=== PATIENT | male | born 1965 | race Caucasian/White ===

== ENCOUNTER 2018-06-02 16:59 | Emergency (ER) | payer OTHER, BC ==
[~2018-06-02] VITALS: Ht 182.9 cm; Wt 90.7 kg
[~2018-06-02 16:59] MED LIST: CEPH500 PO; FAMO20 PO; LISI5; OXYACE5T PO; SUCR1 PO
[2018-06-02] MEDS ORDERED: VARE1 PO (17:20)
== END 2018-06-02 17:30 | disposition home or self-care (01) ==
LOC: ER 16:59
DX: S01.512A Laceration without foreign body of oral cavity, initial encounter (principal); S00.83XA Contusion of other part of head, initial encounter; I10 Essential (primary) hypertension; F17.200 Nicotine dependence, unspecified, uncomplicated; Z79.899 Other long term (current) drug therapy; V47.5XXA Car driver injured in collision with fixed or stationary object in traffic accident, initial encounter
CPT/HCPCS: 99284

== ENCOUNTER 2022-02-21 10:09 | Day surgery (SDC) | payer OTHER ==
[~2022-02-21] VITALS: Ht 182.9 cm; Wt 89.1 kg
[~2022-02-21 10:09] MED LIST changes: +FAMO40 PO; +LISI20 PO; +VARE1 PO
== END 2022-02-21 12:57 | disposition home or self-care (01) ==
LOC: ORSCSDS 10:09
PROVIDERS: Internal Medicine Gastroenterology
PROC: 0DJD8ZZ Inspection of Lower Intestinal Tract, Via Natural or Artificial Opening Endoscopic (ICD-10-PCS; principal; 2022-02-21 11:30)
DX: Z12.11 Encounter for screening for malignant neoplasm of colon (principal); Z86.010 Personal history of colon polyps; K64.8 Other hemorrhoids; I10 Essential (primary) hypertension; K57.30 Diverticulosis of large intestine without perforation or abscess without bleeding; F17.210 Nicotine dependence, cigarettes, uncomplicated; Z79.899 Other long term (current) drug therapy
CPT/HCPCS: J2704; J7120